=== PATIENT | male | born 1975 | race Caucasian/White ===

== ENCOUNTER 2018-01-18 07:47 | Emergency (ER) | payer OTHER ==
[~2018-01-18] VITALS: Ht 175.3 cm; Wt 93.3 kg
[~2018-01-18 07:47] MED LIST: ADVIL COLD &1 TABLET PO; ZOFRAN ODT4 MG PO
[2018-01-18 08:32] VITALS: BP 137/98
== END 2018-01-18 08:32 | disposition home or self-care (01) ==
LOC: EME 07:47
DX: H53.8 Other visual disturbances (principal)
CPT/HCPCS: 99281; 99284